=== PATIENT | male | born 1950 | race Caucasian/White ===

== ENCOUNTER 2017-10-18 10:50 | Day surgery (SDC) | payer MEDICARE, OTHER ==
[2017-10-18] MEDS ORDERED: FENTAnyl 50 MCG/ML VIAL (12:42)
[2017-10-18] MEDS ORDERED: PROVENTIL HFA 6.7GM INHALER (12:52)
[2017-10-18] MEDS ORDERED: PHENYLephrine (100 MCG/ML) 5ML SYG (13:01)
[2017-10-18] MEDS ORDERED: PROPOFOL 20 ML (13:13)
[2017-10-18] MEDS ORDERED: LIDOCAINE 100 MG SYRINGE (13:13)
[2017-10-18] MEDS ORDERED: ROCURONIUM 50 MG INJ (13:13)
[2017-10-18] MEDS ORDERED: SUCCINYLCHOLINE CHLORIDE 100 MG/5 ML SYG IV (13:13)
[2017-10-18] MEDS ORDERED: CEFAZOLIN 1 GM INJ (13:13)
[2017-10-18] MEDS ORDERED: SUGAMMADEX SODIUM 200 MG/2 ML VIAL IV (13:13)
[2017-10-18] MEDS: METHYLENE BLUE 1% 10 ML INJ (13:46)
[2017-10-18] MEDS: MITOMYCIN 40 MG VIAL IS (13:47)
[2017-10-18] MEDS ORDERED: HYDROCODONE/APAP (5/325) TAB PO (14:30)
[2017-10-18] MEDS ORDERED: ONDANSETRON 4 MG INJ IV (15:00)
[2017-10-18] MEDS ORDERED: FENTAnyl 50 MCG/ML VIAL IV (15:00)
[2017-10-18] MEDS ORDERED: HYDROmorphONE (0.2 MG/ML) 10ML SYG IV ×2 (15:00)
[2017-10-18] MEDS: FENTAnyl 50 MCG/ML VIAL IV ×2 (15:14→15:24)
[2017-10-18] MEDS: BELLADONNA ALK/OPIUM SUPP PR (15:36)
[2017-10-18] MEDS: TOLTERODINE (SR) 4 MG CAP PO (15:36)
[2017-10-18] MEDS ORDERED: ALBUTEROL 0.083% (NEB) 2.5 MG/3 ML AMP (15:57)
[2017-10-18] MEDS: ALBUTEROL 0.083% (NEB) 2.5 MG/3 ML AMP HHN (16:08)
== END 2017-10-18 17:20 | disposition home or self-care (01) ==
LOC: SDS 10:50
DX: C67.5 Malignant neoplasm of bladder neck (principal); E78.5 Hyperlipidemia, unspecified; J44.9 Chronic obstructive pulmonary disease, unspecified; J45.909 Unspecified asthma, uncomplicated
CPT/HCPCS: 52500; 88305; 94664

== ENCOUNTER 2018-04-26 10:40 | Day surgery (SDC) | payer MEDICARE, OTHER ==
[~2018-04-26 10:40] MED LIST: ACETAMINOPHEN 1000 MG/100 ML IVPB; CEFAZOLIN 1 GM INJ; CEFAZOLIN 2 GM/50 ML (PMX) 50 ML IVPB; DEXAMETHASONE 4 MG/ML 1 ML INJ; FENTAnyl 50 MCG/ML VIAL; LIDOCAINE 2% (SDV) 5 ML INJ; METOCLOPRAMIDE 10 MG INJ; PROPOFOL 20 ML
[2018-04-26] MEDS ORDERED: MITOMYCIN 40 MG VIAL IS (12:30)
[2018-04-26] MEDS ORDERED: ONDANSETRON 4 MG INJ (12:35)
[2018-04-26] MEDS ORDERED: MIDAZOLAM 1 MG/ML 2 ML INJ (12:37)
[2018-04-26] MEDS ORDERED: FENTAnyl 50 MCG/ML VIAL (13:00)
[2018-04-26] MEDS ORDERED: DIPHENHYDRAMINE 50 MG INJ IV (14:30)
[2018-04-26] MEDS ORDERED: LEVALBUTEROL (NEB) 1.25 MG/0.5 ML AMP HHN (14:30)
[2018-04-26] MEDS ORDERED: IPRATROPIUM (NEB) 0.5 MG/2.5 ML AMP HHN (14:30)
[2018-04-26] MEDS ORDERED: ONDANSETRON 4 MG INJ IV (14:30)
[2018-04-26] MEDS ORDERED: HYDROmorphONE 1 MG/5 ML IV SYRINGE IV ×3 (14:30)
[2018-04-26] MEDS ORDERED: FENTAnyl 50 MCG/ML VIAL IV ×2 (14:30)
[2018-04-26] MEDS ORDERED: MEPERIDINE 25 MG INJ IV (14:30)
[2018-04-26] MEDS ORDERED: hydrALAzine 20 MG INJ IV (14:30)
[2018-04-26] MEDS ORDERED: LABETALOL HCL 20MG INJ IV (14:30)
[2018-04-26] MEDS: HYDROCODONE/APAP (5/325) TAB PO (15:06)
== END 2018-04-26 15:15 | disposition home or self-care (01) ==
LOC: SDS 10:40
DX: C67.9 Malignant neoplasm of bladder, unspecified (principal)
CPT/HCPCS: 52224